=== PATIENT | male | born 1970 | race Two or more races ===

== ENCOUNTER 2023-02-01 11:54 | Inpatient (IN) | payer OTHER ==
[~2023-02-01] VITALS: Ht 162.6 cm; Wt 81.6 kg
[2023-02-01 01:00] VITALS: BP 139/75
--- NOTE | 2023-02-01 11:54 | NUR ---
1149H- AT BEDSIDE FOR EVAL.
--- NOTE | 2023-02-01 11:54 | NUR ---
1153: CODE STROKE ACTIVATION
--- NOTE | 2023-02-01 11:54 | NUR ---
IV LINE ESTABLISHED BLOOD DRAWN AND SENT TO LAB.
--- NOTE | 2023-02-01 11:55 | NUR ---
TAKEN TO CT VIA [facility]
--- NOTE | 2023-02-01 11:55 | NUR ---
PT IS WHEELED TO CT SCAN VIA ACLS PROTOCOL.
--- NOTE | 2023-02-01 11:57 | NUR ---
FEMI FROM SNF FOR NOTED L SIDED FACIAL DROOP/ L SIDED WEAKNESS LKW 1100. PT HAS HX OF PREVIOS STROKE IN WHICH HE HAS RIGHT SIDED WEAKNESS FROM. PT IS A&OX2. DR DUGGAN AT BEDSIDE PERFORMING STROKE ASSESSMENT. PT ATTACHED TO MONITOR, VITALS ARE WITHIN NORMAL LIMITS. BLOOD GLUCOSE 90 UPON ARRIVAL.
--- NOTE | 2023-02-01 11:58 | NUR ---
NEUROLOGIST CONTACTED
[2023-02-01 12:05] LABS: BASOPHILS # (AUTO) 0.1 K/uL (0.0-0.2); BASOPHILS % (AUTO) 1.2 % (0.0-2.0); EOSINOPHILS % (AUTO) 20.4 % (0.0-6.0); HEMATOCRIT 37 % (39-51); HEMOGLOBIN 12.6 g/dL (13.5-17.5); LYMPHOCYTES # (AUTO) 1.7 K/uL (0.8-4.8); MEAN CORPUSCULAR HGB CONC 34 g/dl (31.0-36.0); MEAN CORPUSCULAR VOLUME 89 fL (80-96); MONOCYTES # (AUTO) 0.5 K/uL (0.1-1.30); MONOCYTES % (AUTO) 5.1 % (2.0-12.0); NEUTROPHILS # (AUTO) 5.5 K/uL (1.8-8.9); NEUTROPHILS % (AUTO) 56.3 % (43.0-81.0); PLATELET COUNT (AUTO) 208 K/uL (150-450); RED BLOOD CELL COUNT(AUTO) 4.12 MIL/uL (4.5-6.0); WHITE BLOOD COUNT (AUTO) 9.8 K/uL (4.3-11.0)
--- NOTE | 2023-02-01 12:07 | NUR ---
BACK FROM CT VIA [facility]
--- NOTE | 2023-02-01 12:10 | NUR ---
NEUROLOGIST EVALUATING THE PT VIA TELE NEURO SCREEN
--- NOTE | 2023-02-01 12:10 | NUR ---
USED DIRECTOR OF HOUSING JULIO ID # [id number] TO TRANSLATE FOR NEUROLOGIST
[2023-02-01 12:12] LABS: CALCIUM, SERUM 9.1 mg/dL (8.5-10.1); CARBON DIOXIDE 27 mmol/L (21-32); CHLORIDE 109 mmol/L (98-107); CREATININE 1.3 mg/dL (0.6-1.3); GLUCOSE 96 mg/dL (74-106); POTASSIUM 4.4 mmol/L (3.5-5.1); SODIUM SERUM 143 mmol/L (136-145); UREA NITROGEN, BLOOD 17 mg/dL (7-18)
[2023-02-01 12:18] LABS: ALANINE AMINOTRANSFERASE 29 U/L (12-78); ALBUMIN 3.6 g/dL (3.4-5.0); ALKALINE PHOSPHATASE 96 U/L (46-116); ASPARTATE AMINOTRANSFERASE 13 U/L (15-37); BILIRUBIN,DIRECT 0.2 mg/dL (0.0-0.2); BILIRUBIN,TOTAL 0.6 mg/dL (0.2-1.0); TOTAL PROTEIN, SERUM 6.6 g/dL (6.4-8.2)
[2023-02-01] MEDS ORDERED: ATOR40TA PO (12:28)
[2023-02-01] MEDS ORDERED: ASPI-1420 PO (12:28)
[2023-02-01] MEDS ORDERED: ACET-868 PO (12:28)
[2023-02-01] MEDS ORDERED: ACET-2605 PO (12:28)
[2023-02-01] MEDS ORDERED: MAGN400O6 PO (12:29)
[2023-02-01] MEDS ORDERED: NA P133E RC (12:29)
[2023-02-01] MEDS ORDERED: BISA10SU11 RC (12:29)
[2023-02-01] MEDS ORDERED: NIFE-35 PO (12:29)
[2023-02-01] MEDS ORDERED: SENN-261 PO (12:29)
[2023-02-01] MEDS ORDERED: HYDR-4076 PO (12:29)
[2023-02-01] MEDS ORDERED: PANT40TA2 PO (12:29)
[2023-02-01] MEDS ORDERED: DOCU-141 PO (12:29)
[2023-02-01] MEDS ORDERED: FOLI0.8T2 PO (12:29)
[2023-02-01] MEDS ORDERED: LISI40TA13 PO (12:29)
[2023-02-01] MEDS ORDERED: MECL-159 PO (12:29)
[2023-02-01] MEDS ORDERED: ISOS30TA86 PO (12:29)
[2023-02-01] MEDS ORDERED: LABE200T5 PO (12:29)
[2023-02-01 12:35] LABS: CHOLESTEROL 80 mg/dL (<200); HDL CHOLESTEROL 60 mg/dL (40-60); LDL 27 mg/dL (0-99); TRIGLYCERIDES 47 mg/dL (30-150)
[2023-02-01] MEDS ORDERED: IV NS 0.9% 250 ML IV ONE (12:41)
[2023-02-01] MEDS ORDERED: IOHEXOL-350 100 ML VIAL IV ONE (12:41)
[2023-02-01] MEDS ORDERED: CT SWABBABLE VALVE TRANS SET 1 EA INFUS.SET MC ONE (12:41)
--- NOTE | 2023-02-01 12:43 | NUR ---
PT TAKEN TO CT VIA [facility]
--- NOTE | 2023-02-01 12:58 | NUR ---
COVID TEST COLLECTED AND SENT
--- NOTE | 2023-02-01 13:20 | NUR ---
CALLED NURSING SUP REGARDING PT BED
--- NOTE | 2023-02-01 14:30 | NUR ---
SPOKE TO [facility] [phone] OPTION 2
--- NOTE | 2023-02-01 15:44 | NUR ---
REPORT GIVEN TO MIRTHA FOR THONG
[2023-02-01 16:00] VITALS: BP 139/73
--- NOTE | 2023-02-01 16:38 | NUR ---
PT TRANFERRED TO TELE FLOOR WITH ACLS PROTOCOLS IN PLACE
[2023-02-01] MEDS ORDERED: BISACODYL SUPP (10 MG) 10 MG/SUPP.RECT SUPP.RECT RC PRN (17:00)
--- NOTE | 2023-02-01 17:00 | NUR ---
CHANGE MANAGEMENT EXPERTINTER COM SERVICER NOTES RECEIVED PATIENT FROM ER VIA [facility]. REPORT GIVEN BY CUATE. PATIENT IS A/O X4, ABLE TO MAKE NEEDS KNOWN. PATIENT ORIENTED TO ROOM AND HOW TO USE THE CALL LIGHT. ON ROOM AIR, BREATHING EVEN AND UNLABORED. NO SOB OR S/S OF DISTRESS NOTED. ALL BELONGINGS ACCOUNTED FOR, BELONGING SHEET SIGNED. WITH EXTERNAL BUYER WITH READING OF SINUS RHYTHM IV ACCESS RAC #20G SL AND LAC#22G SL, PATENT AND INTACT. VITAL SIGNS TAKEN FOLLOWS: BP:139/73, HR 64 AND O2 SATURATION OF 99%. SKIN ASSESSMENT DONE. SKIN DRY AND INTACT. SAFETY PRECAUTIONS IN PLACE: BED IN LOW, LOCKED POSITION; SIDERAILS UP X2, CALL LIGHT WITHIN REACH. WILL CONTINUE TO MONITOR.
[2023-02-01 18:34] VITALS: BP 139/73
[2023-02-01] MEDS: BLOOD SUGAR DIAGNOSTIC 1 EACH STRIP IN SCH ×3 (18:51→22:25)
[2023-02-01] MEDS: DOCUSATE SODIUM 100 MG CAPSULE PO SCH (19:08)
[2023-02-01] MEDS: LABETALOL HCL (100MG) 100 MG TABLET PO SCH (19:09)
[2023-02-01] MEDS: NIFEdipine XL (30MG) 30 MG TAB PO SCH (19:10)
--- NOTE | 2023-02-01 19:27 | NUR ---
EPIC SPECIALIST CLOSING NOTE PATIENT AWAKE IN BED A/O X4. ON ROOM AIR, NO S/S OF DISTRESS AND NO SOB NOTED. ABLE TO MAKE NEEDS KNOWN. WITH EXTERNAL WELLNESS NURSE RN ON SINUS RHYTHM WITH HR 70. WITH IV ACCESS RAC #20G SL AND LAC #22 SL. SWALLOW EVALUATION DONE, PATIENT ABLE TO PASS. REQUESTED ST EVAL. ALL DUE MEDICATIONS ADMINISTERED. ALL NEEDS ATTENDED AND ANTICIPATED. FALL AND SAFETY PRECAUTION IN PLACE: BED LOCKED AND AT THE LOWEST POSITION, SIDE RAILS UP X2, CALL LIGHT WITHIN REACH. WILL ENDORSE TO RADIAL SAW OPERATOR NURSE.
--- NOTE | 2023-02-01 19:29 | NUR ---
RN OPENING NOTE; RECEIVED PT IN BED AWAKED AOX4 ABLE TO MAKE NEEDS KNOWN,ON RM AIR RADHA WELL,NO SIGN SOB/DISTRESS NOTED,NO COMPLAIN OF PAIN/DISCOMFORT AT THIS TIME,IV ACCESS RAC 20G AND LAC 22G PATENT AND INTACT,SAFETY MEASURE IN PLACE,CALL LIGHT WITHIN REACH,WILL CONTINUE TO MONITOR.
[2023-02-01 21:00] VITALS: BP 132/71
[2023-02-01] MEDS: ATORVASTATIN 40 MG TABLET PO SCH (21:38)
[2023-02-01] MEDS: SENNOSIDES 8.6 MG TABLET PO SCH (21:38)
[2023-02-01] MEDS: LISINOPRIL (20MG) 20 MG TABLET PO SCH (21:39)
[2023-02-02] VITALS (9 sets, daily range): BP systolic 105–139; BP diastolic 57–76
[2023-02-02] MEDS: BLOOD SUGAR DIAGNOSTIC 1 EACH STRIP IN SCH ×8 (00:06→21:45)
[2023-02-02 05:58] LABS: BASOPHILS # (AUTO) 0.1 K/uL (0.0-0.2); BASOPHILS % (AUTO) 1.1 % (0.0-2.0); EOSINOPHILS % (AUTO) 17.2 % (0.0-6.0); HEMATOCRIT 41 % (39-51); HEMOGLOBIN 13.8 g/dL (13.5-17.5); LYMPHOCYTES # (AUTO) 1.9 K/uL (0.8-4.8); LYMPHOCYTES % (AUTO) 17.7 % (20.0-44.0); MEAN CORPUSCULAR HGB CONC 34 g/dl (31.0-36.0); MEAN CORPUSCULAR VOLUME 89 fL (80-96); MONOCYTES # (AUTO) 0.6 K/uL (0.1-1.30); MONOCYTES % (AUTO) 5.6 % (2.0-12.0); NEUTROPHILS # (AUTO) 6.1 K/uL (1.8-8.9); NEUTROPHILS % (AUTO) 58.4 % (43.0-81.0); PLATELET COUNT (AUTO) 224 K/uL (150-450); RED BLOOD CELL COUNT(AUTO) 4.56 MIL/uL (4.5-6.0); WHITE BLOOD COUNT (AUTO) 10.5 K/uL (4.3-11.0)
[2023-02-02 06:21] LABS: CALCIUM, SERUM 8.9 mg/dL (8.5-10.1); CREATININE 1.1 mg/dL (0.6-1.3); POTASSIUM 3.5 mmol/L (3.5-5.1)
--- NOTE | 2023-02-02 06:25 | NUR ---
RN CLOSING NOTE; PATIENT IN BED AWAKED AOX4 ABLE TO MAKE NEEDS KNOWN,ON RM AIR RADHA WELL,NO SIGN SOB/DISTRESS NOTED,NO COMPLAIN OF PAIN/DISCOMFORT DURING SHIFT,DUE MEDS GIVEN ORDER,ALL NEEDS ATTENDED,V ACCESS RAC 20G AND LAC 22G PATENT AND INTACT,SAFETY MEASURE IN PLACE,CALL LIGHT WITHIN REACH,WILL ENDORSED TO NEXT SHIFT.
--- NOTE | 2023-02-02 08:28 | NUR ---
CLIENT EXPERIENCE SPECIALIST OPENING NOTE (DAY SHIFT) RECEIVED PT IN BED AWAKE AND ALERT, ORIENTED X 4 ABLE TO MAKE NEEDS KNOWN,ON RM AIR TOLERATING WELL,NO SIGN OF SOB/DISTRESS NOTED,NO COMPLAINTS OF PAIN/DISCOMFORT AT THIS TIME. IV ACCESS TO RAC 20G AND LAC 22G PATENT AND INTACT. SAFETY MEASURE IN PLACE. CALL LIGHT WITHIN REACH. NO NEW NEURO DEFICITS DETECTED. ASPIRATION PRECAUTIONS MAINTAINED, HOB UP WHILE EATING BREAKFAST. ATE 100% OF BREAKFAST MEAL WITHOUT ANY SIGNS OF ASPIRATION, NO C/O NAUSEA, NO VOMITING. DRANK 240 MlS COFFEE. WILL CONTINUE TO MONITOR AND CARE FOR PATIENT PER HOSPITALIST PROVIDER'S POC.
[2023-02-02] MEDS: ASPIRIN EC 81 MG TABLET.DR PO SCH (10:01)
[2023-02-02] MEDS: DOCUSATE SODIUM 100 MG CAPSULE PO SCH ×2 (10:01→17:46)
[2023-02-02] MEDS: ISOSORBIDE MONONITRATE (30MG) 30 MG TAB.SR.24H PO SCH (10:04)
[2023-02-02] MEDS: VIT B CMPLX 3/FA/VIT C/BIOTIN 1 TAB TABLET PO SCH (10:04)
[2023-02-02] MEDS: CLOPIDOGREL BISULFATE 75 MG TABLET PO SCH (10:04)
[2023-02-02] MEDS: LABETALOL HCL (100MG) 100 MG TABLET PO SCH ×2 (10:05→17:00)
--- NOTE | 2023-02-02 11:24 | NUR ---
SW Consult: SW consult requested for patient stroke consult. Patient brought to the hospital due to a stroke. Patient presents alert and oriented x3 (self,place,time). Patient reported that he was not feeling well why he came to the hospital. He stated that he lives with a friend. Patient was vague with his answers. He stated that he is feeling anxious about his situation. 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 Patient stated that he has a friend who is supportive but did not identify name. SW assessed for suicidal or homicidal, pt denied. SW assessed any hallucinations visual/auditory, pt denied. SW assessed for substance abuse and pt denied. Pt denied any use of drugs. SW conducted stroke consult. DC PLAN: Patient would want to return back home. [address] [place] [address]; ([phone])
--- NOTE | 2023-02-02 11:28 | NUR ---
Social Work Note/PH9 Post Stroke Depression Screening: box storage worker met with patient and conducted a PHQ-9 (Post Stroke Depression Screening) in which the patient score of a level of 2 for depression. Patient does not require a psychiatric consult at this time.
--- NOTE | 2023-02-02 11:28 | NUR ---
Social Work Stroke Resources: [facility] met with patient and provided stroke referrals such as: Stroke Family Warmline at (4-173-3-STROKE) and additional information on caring for a stroke survivor ( ). [facility] also educated patient on the signs of Stroke and to immediately call 911. [facility] provided education on the signs of stroke and provided educational packet with information: Dietary food, what stroke is, risks, emotional support, finding support, medical management, and effects of stroke.
[2023-02-02] MEDS: NIFEdipine XL (30MG) 30 MG TAB PO SCH (17:46)
--- NOTE | 2023-02-02 18:48 | NUR ---
INSTRUCTIONAL SUPPORT SPECIALIST CLOSING NOTE (DAY SHIFT) PATIENT AWAKE IN BED A/O X4. ON ROOM AIR, NO S/S OF DISTRESS AND NO SOB NOTED. ABLE TO MAKE NEEDS KNOWN. WITH EXTERNAL CYBER DEFENSE FORENSICS ANALYST ON SINUS RHYTHM WITH HR 70. WITH IV ACCESS RAC #20G SL AND LAC #22 SL. SWALLOW EVALUATION DONE, PATIENT ABLE TO PASS. REQUESTED ST EVAL. ALL DUE MEDICATIONS ADMINISTERED EXCEPT HELD LABETOLOL FOR BORDERLINE HYPOTENSION. ALL NEEDS ATTENDED AND ANTICIPATED. FALL AND SAFETY PRECAUTION IN PLACE: BED LOCKED AND AT THE LOWEST POSITION, SIDE RAILS UP X2, CALL LIGHT WITHIN REACH. WILL ENDORSE TO CENTER SALES AND SERVICE ASSOCIATE NURSE FOR THONG.
--- NOTE | 2023-02-02 20:52 | NUR ---
RN OPENING NOTE; PATIENT IN BED AWAKED AOX4 ABLE TO MAKE NEEDS KNOWN,ON RM AIR RADHA WELL,NO SIGN SOB/DISTRESS NOTED,NO COMPLAIN OF PAIN/DISCOMFORT DURING ALL NEEDS ATTENDED,V ACCESS RAC 20G AND LAC 22G PATENT AND INTACT,SAFETY MEASURE IN PLACE,CALL LIGHT WITHIN REACH.
[2023-02-02] MEDS: ATORVASTATIN 40 MG TABLET PO SCH (21:45)
[2023-02-02] MEDS: SENNOSIDES 8.6 MG TABLET PO SCH (21:46)
[2023-02-02] MEDS: LISINOPRIL (20MG) 20 MG TABLET PO SCH (22:00)
[2023-02-02] MEDS ORDERED: ACETAMINOPHEN 325 MG TABLET PO PRN (23:30)
[2023-02-03] VITALS (10 sets, daily range): BP systolic 106–147; BP diastolic 68–99
[2023-02-03 06:16] LABS: BASOPHILS # (AUTO) 0.1 K/uL (0.0-0.2); HEMATOCRIT 39 % (39-51); LYMPHOCYTES # (AUTO) 2.1 K/uL (0.8-4.8); LYMPHOCYTES % (AUTO) 18.9 % (20.0-44.0); MEAN CORPUSCULAR HGB CONC 33 g/dl (31.0-36.0); MEAN CORPUSCULAR VOLUME 91 fL (80-96); MONOCYTES # (AUTO) 0.6 K/uL (0.1-1.30); MONOCYTES % (AUTO) 5.6 % (2.0-12.0); NEUTROPHILS # (AUTO) 6.5 K/uL (1.8-8.9); NEUTROPHILS % (AUTO) 57.5 % (43.0-81.0); PLATELET COUNT (AUTO) 228 K/uL (150-450); RED BLOOD CELL COUNT(AUTO) 4.33 MIL/uL (4.5-6.0); WHITE BLOOD COUNT (AUTO) 11.2 K/uL (4.3-11.0)
[2023-02-03 06:27] LABS: CALCIUM, SERUM 9.4 mg/dL (8.5-10.1); CREATININE 1.2 mg/dL (0.6-1.3); POTASSIUM 3.5 mmol/L (3.5-5.1)
[2023-02-03] MEDS: BLOOD SUGAR DIAGNOSTIC 1 EACH STRIP IN SCH ×4 (06:43→21:14)
--- NOTE | 2023-02-03 07:50 | NUR ---
COMPUTER HELP DESK REPRESENTATIVE OPENING NOTE (DAY SHIFT) RECEIVED PT IN BED AWAKE AND ALERT, ORIENTED X 4 ABLE TO MAKE NEEDS KNOWN,ON RM AIR TOLERATING WELL,NO SIGN OF SOB/DISTRESS NOTED,NO COMPLAINTS OF PAIN/DISCOMFORT AT THIS TIME. IV ACCESS TO RAC 20G AND LAC 22G PATENT AND INTACT. SAFETY MEASURE IN PLACE. CALL LIGHT WITHIN REACH. NO NEW NEURO DEFICITS DETECTED. ASPIRATION PRECAUTIONS MAINTAINED, HOB UP FOR ASPIRATION PRECAUTIONS. WILL CONTINUE TO MONITOR AND CARE FOR PATIENT PER HOSPITALIST PROVIDER'S POC.
[2023-02-03] MEDS: LABETALOL HCL (100MG) 100 MG TABLET PO SCH ×2 (09:00→17:00)
[2023-02-03] MEDS: ISOSORBIDE MONONITRATE (30MG) 30 MG TAB.SR.24H PO SCH (09:00)
[2023-02-03] MEDS: ASPIRIN EC 81 MG TABLET.DR PO SCH (09:09)
[2023-02-03] MEDS: DOCUSATE SODIUM 100 MG CAPSULE PO SCH ×2 (09:09→17:16)
[2023-02-03] MEDS: CLOPIDOGREL BISULFATE 75 MG TABLET PO SCH (09:10)
[2023-02-03] MEDS: VIT B CMPLX 3/FA/VIT C/BIOTIN 1 TAB TABLET PO SCH (09:10)
--- NOTE | 2023-02-03 09:30 | NUR ---
FLUE TILE PRESS OPERATOR PERMISSIVE HTN RN NOTE (DAY SHIFT) Held AM anti-hypertension medications due to MD note indicating need for permissive hypertension protocol post stroke.
[2023-02-03] MEDS: NIFEdipine XL (30MG) 30 MG TAB PO SCH (17:17)
--- NOTE | 2023-02-03 19:01 | NUR ---
DIE DRAWING CHECKER CLOSING NOTE (DAY SHIFT) PATIENT AWAKE, SITTING IN WHEELCHAIR, A/O X 4. ON ROOM AIR, NO S/S OF DISTRESS AND NO SOB NOTED. ABLE TO MAKE NEEDS KNOWN. WITH EXTERNAL COP WINDER ON SINUS RHYTHM WITH HR IN 70S. WITH IV ACCESS RAC #20G SL AND LAC #22 SL. ALL DUE MEDICATIONS ADMINISTERED EXCEPT HELD ANTI-HTN MEDS FOR PERMISSIVE HTN. ALL NEEDS ATTENDED AND ANTICIPATED. FALL AND SAFETY PRECAUTION IN PLACE: BED LOCKED AND AT THE LOWEST POSITION, SIDE RAILS UP X2, CALL LIGHT WITHIN REACH. WILL ENDORSE TO WICKER MOLDED CANDLES NURSE FOR THONG.
--- NOTE | 2023-02-03 20:19 | NUR ---
GEAR GENERATOR SET UP OPERATOR OPENING NOTE. PATIENT AWAKE, SITTING IN WHEELCHAIR, A/O X 4. ON ROOM AIR, NO S/S OF DISTRESS AND NO SOB NOTED. ABLE TO MAKE NEEDS KNOWN. WITH EXTERNAL FINANCIAL DEVELOPER ON SINUS RHYTHM WITH HR IN 70S. WITH IV ACCESS RAC #20G SL AND LAC #22 SL. ALL NEEDS ATTENDED AND ANTICIPATED. FALL AND SAFETY PRECAUTION IN PLACE: BED LOCKED AND AT THE LOWEST POSITION, SIDE RAILS UP X2, CALL LIGHT WITHIN REACH.
[2023-02-03] MEDS: LISINOPRIL (20MG) 20 MG TABLET PO SCH (21:14)
[2023-02-03] MEDS: ATORVASTATIN 40 MG TABLET PO SCH (21:14)
[2023-02-03] MEDS: SENNOSIDES 8.6 MG TABLET PO SCH (21:14)
[2023-02-04] VITALS (7 sets, daily range): BP systolic 132–160; BP diastolic 64–82
[2023-02-04] MEDS: BLOOD SUGAR DIAGNOSTIC 1 EACH STRIP IN SCH ×2 (06:37→11:47)
--- NOTE | 2023-02-04 06:45 | NUR ---
DIGESTER CAPPER CLOSING NOTE. PATIENT AWAKE, SITTING IN WHEELCHAIR, A/O X 4. ON ROOM AIR, NO S/S OF DISTRESS AND NO SOB NOTED. ABLE TO MAKE NEEDS KNOWN. WITH EXTERNAL ASSOCIATE ART DIRECTOR ON SINUS RHYTHM WITH HR IN 70S. WITH IV ACCESS RAC #20G SL AND LAC #22 SL. ALL NEEDS ATTENDED AND ANTICIPATED. FALL AND SAFETY PRECAUTION IN PLACE: BED LOCKED AND AT THE LOWEST POSITION, SIDE RAILS UP X2, CALL LIGHT WITHIN REACH.
--- NOTE | 2023-02-04 07:50 | NUR ---
AEMT OPENING NOTE (DAY SHIFT) RECEIVED PT SITTING IN WHEELCHAIR, AWAKE, AND ALERT, ORIENTED X 4,ABLE TO MAKE NEEDS KNOWN. PT IS ON RM AIR TOLERATING WELL, NO SIGN OF SOB/DISTRESS NOTED. NO COMPLAINTS OF PAIN/DISCOMFORT AT THIS TIME. IV ACCESS TO RAC 20G AND LAC 22G PATENT AND INTACT. SAFETY MEASURE IN PLACE. CALL LIGHT WITHIN REACH. NO NEW NEURO DEFICITS DETECTED. TELE MONITOR SHOWING SR WITH PVCs AND HR RANGE IN 60s. ASPIRATION PRECAUTIONS MAINTAINED, HOB UP FOR ASPIRATION PRECAUTIONS. WILL CONTINUE TO MONITOR AND CARE FOR PATIENT PER HOSPITALIST PROVIDER'S POC.
[2023-02-04 08:51] LABS: BASOPHILS # (AUTO) 0.1 K/uL (0.0-0.2); EOSINOPHILS % (AUTO) 12.6 % (0.0-6.0); HEMATOCRIT 43 % (39-51); HEMOGLOBIN 14.4 g/dL (13.5-17.5); LYMPHOCYTES # (AUTO) 1.6 K/uL (0.8-4.8); LYMPHOCYTES % (AUTO) 15.5 % (20.0-44.0); MEAN CORPUSCULAR HGB CONC 33 g/dl (31.0-36.0); MEAN CORPUSCULAR VOLUME 90 fL (80-96); MONOCYTES # (AUTO) 0.6 K/uL (0.1-1.30); MONOCYTES % (AUTO) 5.4 % (2.0-12.0); NEUTROPHILS # (AUTO) 6.9 K/uL (1.8-8.9); NEUTROPHILS % (AUTO) 65.5 % (43.0-81.0); PLATELET COUNT (AUTO) 233 K/uL (150-450); WHITE BLOOD COUNT (AUTO) 10.5 K/uL (4.3-11.0)
[2023-02-04] MEDS: CLOPIDOGREL BISULFATE 75 MG TABLET PO SCH (08:57)
[2023-02-04] MEDS: DOCUSATE SODIUM 100 MG CAPSULE PO SCH (08:57)
[2023-02-04] MEDS: ASPIRIN EC 81 MG TABLET.DR PO SCH (08:57)
[2023-02-04] MEDS: VIT B CMPLX 3/FA/VIT C/BIOTIN 1 TAB TABLET PO SCH (08:57)
[2023-02-04 09:00] LABS: CALCIUM, SERUM 9.9 mg/dL (8.5-10.1); CREATININE 1.2 mg/dL (0.6-1.3); POTASSIUM 3.9 mmol/L (3.5-5.1)
[2023-02-04] MEDS: ISOSORBIDE MONONITRATE (30MG) 30 MG TAB.SR.24H PO SCH (09:00)
[2023-02-04] MEDS: LABETALOL HCL (100MG) 100 MG TABLET PO SCH (09:00)
--- NOTE | 2023-02-04 11:00 | NUR ---
MS RN UPDATE NOTE (TELEMETRY DISCONTINUED) Removed telemetry per hospitalist provider's order Transferred to Med/Surg.
[2023-02-04] MEDS ORDERED: CLOP75TA15 PO (11:23)
--- NOTE | 2023-02-04 16:40 | NUR ---
MS COMMUNITY MARKETING MANAGER NOTE (DAY SHIFT) Patient tolerated well the removal of both PIV catheters from both left and right arms fully intact without any complications of IV therapy. Patient demonstrated understanding of stroke education using teach back method in [place]. Gave phone report to receiving facvility senior oracle database administrator, Mani. [facility] gurney to ambulance bound for [facility] @ 16:33 hours.
== END 2023-02-04 16:30 | DRG 58 ==
LOC: ER 12:00 → TELE 16:12 → MED 02-04 10:58
PROVIDERS: ADMIT Nurse Practitioner Acute Care; ATTEND Nurse Practitioner Acute Care
DX: I69.392 Facial weakness following cerebral infarction (principal); I69.351 Hemiplegia and hemiparesis following cerebral infarction affecting right dominant side; Z79.82 Long term (current) use of aspirin; I10 Essential (primary) hypertension; J44.9 Chronic obstructive pulmonary disease, unspecified; E78.5 Hyperlipidemia, unspecified; E11.9 Type 2 diabetes mellitus without complications; K21.9 Gastro-esophageal reflux disease without esophagitis
CPT/HCPCS: 36415; 70450-TC; 70496-TC; 70498-TC; 71045-TC; 80048-TC; 80061-TC; 80076-TC; 82962-TC; 84484-TC; 85025-TC; 85730-TC; 87081-TC; 92526; 92611-TC; 93307-TC; 93880-TC; 97110-TC; 97116-TC; 97530-TC; 97535-TC; C9803; G0378; J7050; Q9967